=== PATIENT | male | born 1950 | race Caucasian/White ===

== ENCOUNTER 2022-07-29 12:13 | Emergency (ER) | payer MEDICARE, SELFPAY ==
[2022-07-29 12:18] VITALS: BP 115/67; PULSE 87; RESP 20; TEMP 37; O2SAT 95
--- NOTE | 2022-07-29 12:24 | ED.WOUNDLAC ---
HPI - Wound/Laceration General Chief Complaint: Wound/Laceration Stated Complaint: right thumb lac Time Seen by Provider: 07/29/22 12:24 Source: patient and RN notes reviewed History of Present Illness HPI narrative: Patient is a 72-year-old male who presents to urgent care with complaints of a laceration to the right thumb. Patient states that occurred approximately 8:00 a.m. this morning he was taking on a toilet. Patient states he is up-to-date on his tetanus. States that he put several Band-Aids on it however it blood through whenever he was mowing lawn. No other acute complaints. No acute distress noted. Patient aware of the plan of care. Some parts of this dictation were generated by voice recognition software and may contain typographical and/or grammatical inaccuracies. Related Data Home Medications Medication Instructions Recorded Confirmed amlodipine 10 mg tablet mg 07/29/22 atorvastatin 40 mg tablet mg 07/29/22 empagliflozin 10 mg tablet mg 07/29/22 (Jardiance) escitalopram oxalate 10 mg tablet mg 07/29/22 levocetirizine 5 mg tablet mg 07/29/22 metformin 750 mg tablet,extended mg PO 07/29/22 release 24 hr omeprazole 20 mg capsule,delayed mg 07/29/22 release Allergies Allergy/AdvReac Type Severity Reaction Status Date / Time No Known Allergies Allergy Unverified 11/02/12 18:27 Review of Systems Review of Systems: CONSTITUTIONAL: Denies fever, chills, or sweats. EYES: Denies visual changes, redness, or discharge. ENT: Denies rhinorrhea, congestion, sore throat, or otalgia. CARDIOVASCULAR: Denies chest pain, palpitations, or edema. RESPIRATORY: Denies cough or dyspnea. GASTROINTESTINAL: Denies abdominal pain, nausea, vomiting, or diarrhea. GENITOURINARY: Denies dysuria or hematuria. SKIN: Reports of a laceration to the right thumb MUSCULOSKELETAL: Denies back pain, joint pain, or myalgia. NEUROLOGIC: Denies headache, numbness, or weakness. All other systems reviewed are negative, except as documented in HPI. PMFSH Comments At the time of my signature, I reviewed and agree with the nursing past medical, surgical, social, and family history. There is no relevant family history pertinent to the patient complaint. Exam Narrative: GENERAL: This is a well-nourished, well-developed patient, in no apparent distress. HEAD: normocephalic, atraumatic. EYES: PERRL. Sclera clear/white. Vision is grossly intact. EARS: External ears normal NOSE: External nose normal with no obvious nasal discharge, nares without redness, no rhinorrhea. THROAT: Mucous membranes moist NECK: Neck supple SKIN: 0.5 cm circular flap to the palmar aspect of the right thumb. Warm, intact with no suspicious lesions or rash, good texture and turgor. NEURO: awake, alert, and oriented to person, place and time. There were no obvious focal neurologic abnormalities. EXTREMITIES: No clubbing, cyanosis, or edema. Positive strong right radial pulse with capillary refill less than 2 seconds. Course Course Level of Care: Express Care Visit Vital Signs Vital signs: Vital Signs Temperature 98.6 F 07/29/22 12:18 Pulse Rate 87 07/29/22 12:18 Respiratory Rate 20 07/29/22 12:18 Blood Pressure 115/67 07/29/22 12:18 Pulse Oximetry 95 07/29/22 12:18 Oxygen Delivery Room Air 07/29/22 12:18 Temperature 98.6 F 07/29/22 12:18 Pulse Rate 87 07/29/22 12:18 Respiratory Rate 20 07/29/22 12:18 Blood Pressure 115/67 07/29/22 12:18 Pulse Oximetry 95 07/29/22 12:18 Oxygen Delivery Room Air 07/29/22 12:18 Reviewed Procedures Laceration Laceration 1: Site: hand (Thumb) Side (If applicable): right Size (cm): 0.5 Description: flap ====== Skin Level ====== ====== Subcutaneous Layer ====== ====== Muscle Layer ====== ====== Tendon Layer ====== Dressing: Wound cleansed with wound care normal saline. Flap approximated prior to
== END 2022-07-29 12:47 | disposition home or self-care (01) ==
PROVIDERS: Emergency Provider Nurse Practitioner Family; PCP Family Medicine
DX: S61.011A Laceration without foreign body of right thumb without damage to nail, initial encounter (principal); W26.8XXA Contact with other sharp object(s), not elsewhere classified, initial encounter; E78.00 Pure hypercholesterolemia, unspecified; I10 Essential (primary) hypertension; E11.9 Type 2 diabetes mellitus without complications
CPT/HCPCS: 12001; 99202; G0463